=== PATIENT | female | born 1995 | race African-American/Black ===

== ENCOUNTER 2016-10-14 21:16 | Emergency (ER) | payer OTHER ==
[2016-10-14] MEDS ORDERED: Acetaminophen TAB* 325 MG PO ONE (22:43)
[2016-10-14 23:11] VITALS: BP 117/62
[2016-10-14 23:34] LABS: Manual Entry Verification CAR0052; Mono Internal Control QC Line Present
--- NOTE | 2016-10-15 00:06 | ED ---
HPI Febrile Illness - HPI Summary HPI Summary: 21M presents with fever, left sided cervical lymphadenopathy, nausea. She admits to fatigue. She denies any cough, sinus congestion, ear pain. She has had her tonsils removed. She denies any one else being sick. She denies any abdominal pain or vomiting. diarrhea or constipation. She denies any difficulty swallowing. She has been taking Tylenol. She denies any neck pain or headache. - History of Current Complaint Chief Complaint: EDFever Time Seen by Provider: 10/14/16 22:34 Hx Last Menstrual Period: 02/19/12 Pain Intensity: 7 - Allergy/Home Medications Allergies/Adverse Reactions: Allergies Allergy/AdvReac Type Severity Reaction Status Date / Time Lactose Intolerance (GI) Allergy abdominal Verified 09/28/14 22:15 pain PMH/Surg Hx/FS Hx/Imm Hx Endocrine/Hematology History: Denies: Hx Diabetes, Hx Thyroid Disease Cardiovascular History: Denies: Hx Hypertension Respiratory History: Denies: Hx Asthma, Hx Chronic Obstructive Pulmonary Disease (COPD) GI History: Denies: Hx Ulcer - Surgical History Surgery Procedure, Year, and Place: 1997 appendectomy. 2001 Strobismus - eye surgery. 2006 Tonsillectomy Infectious Disease History: No Infectious Disease History: Denies: Hx Hepatitis, Hx Human Immunodeficiency Virus (HIV), Traveled Outside the [place] in Last 30 Days - Family History Known Family History: Negative: Cardiac Disease - Social History Alcohol Use: Weekly Substance Use Type: Reports: Marijuana Substance Use Comment - Amount & Last Used: occassional, mushrooms Smoking Status (MU): Never Smoked Tobacco Review of Systems Positive: Fever Positive: Sore Throat Negative: Chest Pain Negative: Shortness Of Breath Positive: Nausea. Negative: Abdominal Pain All Other Systems Reviewed And Are Negative: Yes Physical Exam Triage Information Reviewed: Yes Vital Signs On Initial Exam: Initial Vitals Temp Pulse Resp BP Pulse Ox 100.8 F 99 18 111/71 99 10/14/16 21:20 10/14/16 21:20 10/14/16 21:20 10/14/16 21:20 10/14/16 21:20 Vital Signs Reviewed: Yes Appearance: Positive: Ill-Appearing Skin: Positive: Warm, Dry Head/Face: Positive: Normal Head/Face Inspection Eyes: Positive: Normal, EOMI, AUTUMN, Conjunctiva Clear ENT: Positive: Normal ENT inspection, Pharyngeal erythema, TMs normal, Other - soft palate symmetric. Negative: Trismus Neck: Positive: Enlarged Nodes @ - posterior cervical veto left Respiratory/Lung Sounds: Positive: Clear to Auscultation, Breath Sounds Present Cardiovascular: Positive: Normal, RRR Abdomen Description: Positive: Nontender, Soft Bowel Sounds: Positive: Present - [place] Coma Scale Coma Scale Total: 15 Diagnostics - Vital Signs Vital Signs Temp Pulse Resp BP Pulse Ox 10/14/16 23:16 100.1 F 81 14 117/62 99 10/14/16 23:07 89 98 10/14/16 22:50 81 98 10/14/16 22:48 117/62 10/14/16 21:20 100.8 F 99 18 111/71 99 - Laboratory Lab Results: Lab Results 10/14/16 10/14/16 Range/Units 22:54 23:20 Monoscreen Negative (Negative) Group A Strep Rapid Negative (Negative) Lab Statement: Any lab studies that have been ordered have been reviewed, and results considered in the medical decision making process. Course/Dx - Course Course Of Treatment: 21M presents with fever, left sided cervical lymphadenopathy, nausea. She admits to fatigue. She denies any cough, sinus congestion, ear pain. She has had her tonsils removed. She denies any one else being sick. She denies any abdominal pain or vomiting. diarrhea or constipation. She denies any difficulty swallowing. She has been taking Tylenol. She denies any neck pain or headache. on exam has posterior cervical lymphadenopathy. throat soft palate symmetric, neg trismus. mono spot neg but symptoms most consistent with this so will treat as such. patient understands and agrees with plan. - Febrile Illness Differential Diagnoses: Viremia, Other: - mono, strept - Diagnoses Provider Diagnoses: Fever Discharge - Discharge Plan Condition: Good Disposition: HOME Patient Education Materials: Mononucleosis (ED) Forms: *Work Release Referrals: Marcie Bell MD [Primary Care Provider] - Additional Instructions: Even though monospot negative symptoms are likely due to mono Drink plenty of fluids Take Tylenol or ibuprofen every 6 hours Avoid contact sports Take zofran every 6 hours for nausea Return to ED if develop shortness of breath, inability to swallow, or any new or worsening symptoms
[2016-10-15] MEDS ORDERED: Ondansetron ODT TAB* 4 MG PO ONE (00:33)
[2016-10-15] MEDS ORDERED: Ondansetron ODT TAB* 4 MG ONE (00:36)
== END 2016-10-15 00:38 | disposition home or self-care (01) ==
LOC: ED 21:16
DX: R06.02 Shortness of breath (principal); R50.9 Fever, unspecified
CPT/HCPCS: 36415; 86308; 87651; 99282; A9270-GY